=== PATIENT | female | born 1980 | race Caucasian/White ===

== ENCOUNTER 2017-07-06 09:20 | Outpatient (CLI) | payer OTHER ==
[~2017-07-06] VITALS: Ht 157.5 cm; Wt 75.3 kg
[2017-07-06 09:33] VITALS: BP 110/70
[2017-07-06 10:26] LABS: APPEARANCE SL.HAZY ((CLEAR)); BILIRUBIN NEGATIVE; BLOOD LARGE; COLOR YELLOW ((YELLOW)); GLUCOSE (STRIP) NEGATIVE; KETONES NEGATIVE; LEUKOCYTES NEGATIVE; NITRITE NEGATIVE; PROTEIN (STRIP) NEGATIVE; SPECIFIC GRAVITY 1.006 (1.000-1.030); UROBILINOGEN 0.2 MG/DL (0.2-1.0)
[2017-07-06 10:33] LABS: BACTERIA RARE /HPF; EPITHELIAL CELLS 1+ /HPF; HYALINE CASTS 0-5 /LPF; MUCUS TRACE /LPF; RED BLOOD CELLS 0-5 /HPF (0-5); UCUL ADDED? NO; WHITE BLOOD CELLS 0-5 /HPF (0-5)
[2017-07-06 10:50] LABS: UR CREATININE CONCENTRATION 35.3 MG/DL
[2017-07-06 11:23] LABS: BASOPHIL (%) 0.2 % (0-1); EOSINOPHIL (%) 1.2 % (0-5); EOSINOPHIL COUNT 0.1 K/uL (0-0.3); HEMATOCRIT 30.5 % (36.0-46.0); HEMOGLOBIN 10.1 G/DL (11.9-15.5); IMMATURE GRANULOCYTE (%) 1.5 % (0.0-0.7); LYMPHOCYTE (%) 12.8 % (15-42); LYMPHOCYTE COUNT 1.2 K/uL (1.0-2.8); MCH 28.5 PG (29.0-34.0); MCHC 33.1 G/DL (30.0-36.0); MCV 86.2 FL (83-99); MONOCYTE (%) 9.5 % (3-12); MONOCYTE COUNT 0.9 K/uL (0-0.8); NEUTROPHIL (%) 74.8 % (45-76); PLATELET COUNT 240 K/uL (156-360); RBC DIS.WIDTH-CV 12.1 % (11.8-14.6); RBC DIS.WIDTH-SD 38.2 % (39-53); RED BLOOD COUNT 3.54 M/uL (3.80-5.20); WHITE BLOOD COUNT 9.3 K/uL (4.1-10.2)
[2017-07-06 11:43] LABS: ALBUMIN 3.3 G/DL (3.2-4.8); CHLORIDE 108 MEQ/L (99-109); POTASSIUM 3.9 MEQ/L (3.7-5.4); SODIUM 138 MEQ/L (136-147); TOTAL BILIRUBIN 0.3 MG/DL (0.0-1.0)
[2017-07-06 11:49] LABS: ALKALINE PHOSPHATASE 86 IU/L (3-129); ALT (GPT) 9 IU/L (3-49); AST (GOT) 14 IU/L (2-34); CREATININE 0.4 MG/DL (0.6-1.3); GFR ESTIMATE (CALCULATED) > 59 mL/min/; GLUCOSE 73 mg/dL (70-99); TOTAL PROTEIN 5.7 G/DL (6.4-8.3); UREA NITROGEN (BUN) 8 mg/dL (9-23)
[2017-07-06 12:08] LABS: FIBRINOGEN 391 mg/dL (150-450)
[2017-07-06 12:10] LABS: PTT 25.6 SEC (25-37)
[2017-07-06 12:37] VITALS: BP 111/70
[2017-07-06 16:11] VITALS: BP 102/58
[2017-07-06 19:52] VITALS: BP 112/72
[2017-07-06 23:44] VITALS: BP 105/59
[2017-07-07 01:58] VITALS: BP 103/54
[2017-07-07 11:35] VITALS: BP 104/66
[2017-07-07] MEDS ORDERED: PRENATAL VITAM1 EAC8 PO (13:54)
[2017-07-07] MEDS ORDERED: COLACE100 MG PO (13:56)
[2017-07-07] MEDS ORDERED: FEOSOL325 MG PO (13:56)
== END 2017-07-07 14:00 | disposition home or self-care (01) ==
LOC: LDRP-OP 09:20 → 2WEST 09:21
PROVIDERS: Obstetrics & Gynecology
DX: O44.13 Complete placenta previa with hemorrhage, third trimester (principal); Z3A.28 28 weeks gestation of pregnancy
CPT/HCPCS: 59025; 76805; 80053; 81003; 82570; 84156; 85025; 85384; 85610; 85730; 86850; 86900; 86901; G0378; J0702

== ENCOUNTER 2017-07-19 01:08 | Outpatient (CLI) | payer OTHER ==
[~2017-07-19 01:08] MED LIST: COLACE100 MG PO; FEOSOL325 MG PO; PRENATAL VITAM1 EAC8 PO
[2017-07-19 01:23] VITALS: BP 102/70
[2017-07-19 02:26] LABS: BASOPHIL (%) 0.3 % (0-1); EOSINOPHIL (%) 0.8 % (0-5); EOSINOPHIL COUNT 0.1 K/uL (0-0.3); HEMATOCRIT 31.8 % (36.0-46.0); HEMOGLOBIN 10.5 G/DL (11.9-15.5); IMMATURE GRANULOCYTE (%) 2.5 % (0.0-0.7); LYMPHOCYTE (%) 18.3 % (15-42); LYMPHOCYTE COUNT 2.2 K/uL (1.0-2.8); MCH 28.1 PG (29.0-34.0); MONOCYTE (%) 10.8 % (3-12); MONOCYTE COUNT 1.3 K/uL (0-0.8); NEUTROPHIL (%) 67.3 % (45-76); NEUTROPHIL COUNT 7.9 K/uL (1.8-6.4); PLATELET COUNT 239 K/uL (156-360); RBC DIS.WIDTH-CV 12.7 % (11.8-14.6); RBC DIS.WIDTH-SD 37.9 % (39-53); RED BLOOD COUNT 3.74 M/uL (3.80-5.20); WHITE BLOOD COUNT 11.8 K/uL (4.1-10.2)
[2017-07-19 05:27] VITALS: BP 90/54
[2017-07-19 08:51] VITALS: BP 99/65
[2017-07-19 11:29] VITALS: BP 100/57
[2017-07-19] MEDS ORDERED: NIFEDIPINE20 MG PO (15:58)
== END 2017-07-19 17:30 | disposition home or self-care (01) ==
LOC: LDRP-OP 01:08 → 2WEST 01:09 → LDRP-OP 10-26 05:35
PROVIDERS: Obstetrics & Gynecology
DX: O44.13 Complete placenta previa with hemorrhage, third trimester (principal); O60.03 Preterm labor without delivery, third trimester; Z3A.30 30 weeks gestation of pregnancy; O09.523 Supervision of elderly multigravida, third trimester
CPT/HCPCS: 59025; 85025; 86850; 86900; 86901; G0378

== ENCOUNTER 2017-09-05 05:31 | Inpatient (IN) | payer OTHER ==
[~2017-09-05] VITALS: Ht 160 cm; Wt 85.0 kg
[2017-09-05] VITALS (7 sets, daily range): BP systolic 94–124; BP diastolic 57–70
[~2017-09-05 05:31] MED LIST changes: +NIFEDIPINE20 MG PO
[2017-09-05] MEDS ORDERED: ENDOCET 5-3251 EACH PO (08:34)
[2017-09-05] MEDS ORDERED: IBUPROFEN800 MG PO (08:34)
[2017-09-06 07:23] VITALS: BP 103/65
[2017-09-06 08:04] LABS: BASOPHIL (%) 0.2 % (0-1); EOSINOPHIL (%) 0.9 % (0-5); EOSINOPHIL COUNT 0.1 K/uL (0-0.3); HEMATOCRIT 28.9 % (36.0-46.0); IMMATURE GRANULOCYTE (%) 0.8 % (0.0-0.7); LYMPHOCYTE (%) 8.8 % (15-42); LYMPHOCYTE COUNT 1.1 K/uL (1.0-2.8); MCHC 31.8 G/DL (30.0-36.0); MCV 88.1 FL (83-99); MONOCYTE (%) 10.6 % (3-12); MONOCYTE COUNT 1.3 K/uL (0-0.8); NEUTROPHIL (%) 78.7 % (45-76); NEUTROPHIL COUNT 9.6 K/uL (1.8-6.4); PLATELET COUNT 186 K/uL (156-360); RBC DIS.WIDTH-CV 15.9 % (11.8-14.6); RBC DIS.WIDTH-SD 51.3 % (39-53); RED BLOOD COUNT 3.28 M/uL (3.80-5.20); WHITE BLOOD COUNT 12.2 K/uL (4.1-10.2)
[2017-09-06 08:13] LABS: HEMOGLOBIN 9.2 G/DL (11.9-15.5)
[2017-09-06 10:46] VITALS: BP 120/75
[2017-09-06 17:33] VITALS: BP 118/71
[2017-09-06 19:00] VITALS: BP 115/70
[2017-09-06 23:45] VITALS: BP 99/59
[2017-09-07 02:30] VITALS: BP 100/66
[2017-09-07 07:35] VITALS: BP 100/61
[2017-09-07 15:00] VITALS: BP 103/68
[2017-09-08 07:23] VITALS: BP 103/69
[2017-09-08 15:07] VITALS: BP 110/68
[2017-09-09 00:15] VITALS: BP 105/69
[2017-09-09 07:12] VITALS: BP 109/78
[2017-09-09 14:22] VITALS: BP 115/73
== END 2017-09-09 23:20 | disposition home or self-care (01) | DRG 765 ==
LOC: 2WEST 05:31 → 2SOUTH 13:31 → 2WEST 09-09 23:20
PROVIDERS: Obstetrics & Gynecology
PROC: 10D00Z1 Extraction of Products of Conception, Low, Open Approach (ICD-10-PCS; principal; 2017-09-05)
DX: O99.344 Other mental disorders complicating childbirth (principal); O34.211 Maternal care for low transverse scar from previous cesarean delivery; N85.8 Other specified noninflammatory disorders of uterus; O44.43 Low lying placenta NOS or without hemorrhage, third trimester; F41.9 Anxiety disorder, unspecified; O99.284 Endocrine, nutritional and metabolic diseases complicating childbirth; E03.9 Hypothyroidism, unspecified; Z3A.37 37 weeks gestation of pregnancy; Z37.0 Single live birth; Z87.891 Personal history of nicotine dependence
CPT/HCPCS: 85025; 86850; 86900; 86901; 86920; J0690; J1200; J2175; J2274; J2405; J3010; J7120